=== PATIENT | male | born 1990 | race Caucasian/White ===

== ENCOUNTER 2018-03-11 18:58 | Emergency (ER) | payer SELFPAY ==
[~2018-03-11] VITALS: Ht 175.3 cm; Wt 80.0 kg
[~2018-03-11 18:58] MED LIST: NICO-485 TD; None per pt; OXYC5TAB3 PO; WARF6TAB47 PO
--- NOTE | 2018-03-11 19:11 | NUR ---
ASSUMED ARE OF PATIENT. PATIENT BIB [facility] FOR A OD. PT REPORTS HE TOOK A UNKNOWN PAIN PILL HE HAS BEEN HAVING PAIN IN HIS RIGHT LEG. PT REPORTS HE DOES NOT USUALLY TAKE PAIN PILLS. FIRE PLACED A IV AND GAVE 0.4 OF NARCAN. PT IS ALERT AND RESPONSIVE. NO ACUTE DISTRESS NOTED. VS STABLE. CALL LIGHT IN PLACE. WILL CONTINUE TO MONITOR.
--- NOTE | 2018-03-11 20:08 | NUR ---
PATIENT RESTING IN ROOM. NO ACUTE DISTRESS NOTED. CALL LIGHT IN PLACE.
--- NOTE | 2018-03-11 20:20 | NUR ---
PT USING PHONE
--- NOTE | 2018-03-11 20:48 | NUR ---
PT IS A&O X4. NO ACUTE DISTRESS NOTED. CALL LIGHT IN PLACE. WILL CONTINUE TO MONITOR.
[2018-03-11 20:56] VITALS: BP 110/64
--- NOTE | 2018-03-11 20:58 | NUR ---
PT IS STAYING WITH HIS MOTHER DAGO. PT DISCHRAGED PER DR SHETTY
== END 2018-03-11 21:51 | disposition home or self-care (01) ==
LOC: ED 20:54
DX: T40.2X1A Poisoning by other opioids, accidental (unintentional), initial encounter (principal); X58.XXXA Exposure to other specified factors, initial encounter; Y93.89 Activity, other specified; Y92.89 Other specified places as the place of occurrence of the external cause; Y99.8 Other external cause status
CPT/HCPCS: 99283